=== PATIENT | male | born 1960 | race Caucasian/White ===

== ENCOUNTER 2019-03-01 04:18 | Emergency (ER) | payer BC, OTHER ==
[2019-03-01] MEDS ORDERED: NS 0.9% 1000 ML** 1,000 ML IV ONE (04:42)
[2019-03-01] MEDS ORDERED: GENTAMICIN ADULT IVPB ONE (04:42)
[2019-03-01] MEDS ORDERED: cefTRIAXone(*) 1 GM in NS 0.9% 50 ML* 50 ML IVPB ONE (04:42)
[2019-03-01] MEDS ORDERED: NS 0.9% IVPB ONE (04:42)
--- NOTE | 2019-03-01 04:54 | ED ---
GI/ HPI - HPI Summary HPI Summary: This patient is a 58 year old male presenting to [facility] with a chief complaint of general illness. The patient was seen at Dr. Yuan. Urology office today and he diagnosed him with prostatitis and prescribed bactrim, symptoms for which started 5 days ago. The patient went home and got worse since a few hours ago with increased fever and frequency of urination. Patient denies vomiting. - History of Current Complaint Chief Complaint: EDFever Time Seen by Provider: 03/01/19 04:41 Stated Complaint: FEVER PER PT Hx Obtained From: Patient Onset/Duration: Started Hours Ago Pain Intensity: 0 - Allergy/Home Medications Allergies/Adverse Reactions: Allergies Allergy/AdvReac Type Severity Reaction Status Date / Time pollen extracts Allergy Eyes Verified 12/04/17 11:07 Itchy/Swollen/Red/Watery ragweed pollen Allergy Eyes Verified 12/04/17 11:07 Itchy/Swollen/Red/Watery PMH/Surg Hx/FS Hx/Imm Hx Endocrine/Hematology History: Denies: Hx Diabetes Cardiovascular History: Denies: Hx Coronary Artery Disease History: Reports: Other Problems/Disorders - Prostatitis Infectious Disease History: No Infectious Disease History: Denies: Traveled Outside the [place] in Last 30 Days - Family History Known Family History: Positive: Hypertension, Other - Prostate cancer in 3 brothers - Social History Alcohol Use: Rare Substance Use Type: Reports: None Smoking Status (MU): Never Smoked Tobacco Review of Systems Positive: Fever Negative: Vomiting Positive: frequency All Other Systems Reviewed And Are Negative: Yes Physical Exam - Summary Physical Exam Summary: General: Well-developed, Well-nourished MALE. No acute distress. HEENT: Normocephalic, Atraumatic. Eyes: Conjuctiva normal, PERRL. Oropharynx: Clear, mucous membranes moist, (-) exudates. Neck: Soft, FROM, (-) lymphadenopathy, (-) thyromegaly, (-) JVD. Cardiovascular: Normal sinus rhythm, (-) murmur. Lungs: Clear to auscultation bilaterally (-) wheezes, (-) rales, (-) rhonchi. Abdomen: Soft, non-tender, non-distended, (-) organomegaly, normal bowel sounds. Back: (-) CVA tenderness Extremities: No edema. Skin: Warm, dry, (-) rash. Neuro: Alert and oriented x3, no focal deficits. Psychiatric: Mood normal, affect normal. Triage Information Reviewed: Yes Vital Signs On Initial Exam: Initial Vitals Temp Pulse Resp BP Pulse Ox 98.7 F 120 18 143/115 98 03/01/19 04:20 03/01/19 04:20 03/01/19 04:20 03/01/19 04:20 03/01/19 04:20 Vital Signs Reviewed: Yes Procedures - Sedation Patient Received Moderate/Deep Sedation with Procedure: No Diagnostics - Vital Signs Vital Signs Temp Pulse Resp BP Pulse Ox 03/01/19 04:35 104 110/71 95 03/01/19 04:20 98.7 F 120 18 143/115 98 - Laboratory Result Diagrams: 03/01/19 05:00 03/01/19 05:00 Lab Statement: Any lab studies that have been ordered have been reviewed, and results considered in the medical decision making process. Re-Evaluation - Re-Evaluation First Eval Re-Evaluation Time: 07:03 Comment: Pt reports he was diagnosed with prostatitis yesterday by Dr. Yuan and placed on antibiotics. He states he was well yesterday evening until today when he woke up with cold and chills. Currently denies any pain with urination or blood in urine. His urologist is Dr. Thorne. Labs are currently pending. Second Eval Re-Evaluation Time: 07:45 Comment: Reviewed lab results with patient. GIGU Course/Dx - Course Course Of Treatment: 58 year old male presents with shaking chills and fever. seen at urology today and diagnosed with prostatitis. started on bactrim. has taken one dose. started wiht shaking chills and fever overnight. took motrin, referred here from urology professional organizer. given rocephin and gentamycin. awaiting labs and reevaluation, signed out at change of shift. - Diagnoses Provider Diagnoses: Prostatitis Discharge ED - Sign-Out/Discharge Documenting (check all that apply): Sign-Out Patient Signing out patient TO: Adan Veloz - Pend bloodwork at shift change 0700 - Discharge Plan Condition: Stable Disposition: HOME Patient Education Materials: Prostatitis (ED) Referrals: David Hager MD [Primary Care Provider] - Joon Yuan MD [Medical Doctor] - Additional Instructions: PLEASE RETURN TO EMERGENCY DEPARTMENT IF YOU'RE FEELING WORSE, WITH WORSENING FEVER, CHILLS, PAIN WITH URINATION, OR BLOOD IN YOUR URINE. Continue taking Bactrim at home. Please follow up with Dr. Yuan in 1-3 days. - Billing Disposition and Condition Condition: STABLE Disposition: Home - Attestation Statements Document Initiated by Aida: Yes Documenting Scribe: Hossein Hill Provider For Whom Aida is Documenting (Include Credential): Maricarmen Drew MD Scribe Attestation: IHossein, scribed for Maricarmen Drew MD on 03/01/19 at 2023. Scribe Documentation Reviewed: Yes Provider Attestation: The documentation as recorded by the Hossein ibarra accurately reflects the service I personally performed and the decisions made by me, Maricarmen Drew MD Status of Scribe Document: Viewed
[2019-03-01] MEDS ORDERED: Gentamicin ADULT (*) 40 MG/ML VIAL (2 ML VIAL = 80 MG) IVPB ONE (05:32)
[2019-03-01 06:34] LABS: Urine Appearance Clear; Urine Bilirubin Negative (Negative); Urine Blood 1+ (Negative); Urine Color Yellow; Urine Glucose Negative (Negative); Urine Ketones Negative (Negative); Urine Nitrite Negative (Negative); Urine Protein Negative (Negative); Urine Specific Gravity 1.006 (1.010-1.030); Urine Urobilinogen Negative (Negative)
[2019-03-01 06:36] LABS: Urine Bacteria Absent (Absent); Urine Red Blood Cell Trace(0-2/hpf) (Absent); Urine Squamous Epithelial Cell Present (Absent); Urine White Blood Cell 3+(>20/hpf) (Absent)
--- NOTE | 2019-03-01 07:05 | ED ---
Progress - Progress Note Progress Note: This pt is a sign out from Dr. Drew to Dr. Veloz at shift change at 0700 on 03/01/19 pending blood work. Re-Evaluation - Re-Evaluation First Eval Re-Evaluation Time: 07:03 Comment: Pt reports he was diagnosed with prostatitis yesterday by Dr. Yuan and placed on antibiotics. He states he was well yesterday evening until today when he woke up with cold and chills. Currently denies any pain with urination or blood in urine. His urologist is Dr. Thorne. Labs are currently pending. Second Eval Re-Evaluation Time: 07:45 Comment: Reviewed lab results with patient. Course/Dx - Course Course Of Treatment: Patient was signed out from Dr. Drew pending blood work. Patient was diagnosed with prostatitis yesterday by his urologist and had fevers overnight. Patient was started on Bactrim. Patient came in and felt better after taking antipyretic medication. Patient had blood performed showed a with symptoms of 13 and no other abnormalities. Urology was called by Dr. Drew in the [place] with discharge after a dose of Rocephin and gentamicin. Patient did not want to be admitted to the hospital and was comfortable at discharge. - Diagnoses Provider Diagnoses: Prostatitis Discharge ED - Sign-Out/Discharge Documenting (check all that apply): Patient Departure - Discharge home, Receiving Sign-Out Receiving patient FROM: Maricarmen Drew - Discharge Plan Condition: Stable Disposition: HOME Patient Education Materials: Prostatitis (ED) Referrals: David Hager MD [Primary Care Provider] - Joon Yuan MD [Medical Doctor] - Additional Instructions: PLEASE RETURN TO EMERGENCY DEPARTMENT IF YOU'RE FEELING WORSE, WITH WORSENING FEVER, CHILLS, PAIN WITH URINATION, OR BLOOD IN YOUR URINE. Continue taking Bactrim at home. Please follow up with Dr. Yuan in 1-3 days. - Billing Disposition and Condition Condition: STABLE Disposition: Home - Attestation Statements Document Initiated by Scribe: Yes Documenting Scribe: Sera Cooper Provider For Whom Scribe is Documenting (Include Credential): Adan Veloz MD Scribe Attestation: I, Sera Cooper, scribed for Adan Veloz MD on 03/01/19 at 1335. Scribe Documentation Reviewed: Yes Provider Attestation: The documentation as recorded by the scribe, Sera Cooper accurately reflects the service I personally performed and the decisions made by me, Adan Veloz MD Status of Scribe Document: Viewed
[2019-03-01 07:08] LABS: ABS Lymphocytes 0.4 10^3/ul (1.0-4.8); ABS Monocytes 0.6 10^3/ul (0-0.8); ABS Neutrophils 12.6 10^3/ul (1.5-7.7); Eosinophil % 0.3 %; Hematocrit 40 % (42-52); Hemoglobin 13.8 g/dL (14.0-18.0); Lymphocyte % 3.3 %; Mean Corpuscular HGB Conc 35 g/dL (31-36); Mean Corpuscular Hemoglobin 32 pg (27-31); Mean Corpuscular Volume 92 fL (80-94); Mean Platelet Volume 7.4 fL (7.4-10.4); Platelet Count 246 10^3/uL (150-450); Red Blood Count 4.27 10^6 /uL (4.18-5.48); Red Cell Distribution Width 13 % (10-15); White Blood Count 13.8 10^3/uL (3.5-10.8)
[2019-03-01 07:17] LABS: Albumin 3.8 g/dL (3.2-5.2); Albumin/Globulin Ratio 1.4 (1-3); BUN/Creatinine Ratio 12.9 (8-20); Calcium 9.9 mg/dL (8.6-10.3); EGFR Non-African American 64.4 (>60); Globulin 2.8 g/dL (2-4); Potassium 3.5 mmol/L (3.5-5.0); Total Bilirubin 1.1 mg/dL (0.2-1.0); Total Protein 6.6 g/dL (6.4-8.9)
[2019-03-01 07:58] VITALS: BP 114/72
== END 2019-03-01 08:05 | disposition home or self-care (01) ==
LOC: ED 04:18
DX: N41.9 Inflammatory disease of prostate, unspecified (principal); R50.9 Fever, unspecified; R35.0 Frequency of micturition; Z91.09 Other allergy status, other than to drugs and biological substances
CPT/HCPCS: 36415; 80053; 81003; 81015; 85025; 87040; 87077; 87086; 87186; 96361; 96365; 96366; 99283; J0696; J1580